=== PATIENT | female | born 2000 | race African-American/Black ===

== ENCOUNTER 2020-11-19 10:27 | Emergency (ER) | payer OTHER ==
[~2020-11-19] VITALS: Ht 157.5 cm; Wt 65.5 kg
[2020-11-19] MEDS ORDERED: MULTTAB20 PO (10:41)
[2020-11-19] MEDS ORDERED: ACETAMINOPHEN TAB 650MG DOSE (2X325MG) PO ONE (14:50)
[2020-11-19 15:18] LABS: BASO % 0.2 % (0.0-1.0); EOS % 0.3 % (0.0-3.0); HEMATOCRIT 35.4 % (36.0-47.0); HEMOGLOBIN 11.8 g/dl (12.0-15.5); LYMPH # 2.1 10^3/uL (1.5-5.0); LYMPH % 23.8 % (24.0-44.0); MEAN CORPUSCULAR HEMOGLOBIN 29.1 pg (27.0-33.0); MEAN CORPUSCULAR HGB CONC 33.3 g/dl (32.0-36.5); MEAN CORPUSCULAR VOLUME 87.4 fl (80.0-96.0); MONO # 0.6 10^3/uL (0.0-0.8); MONO % 6.2 % (2.0-8.0); NEUTROPHILS # 6.1 10^3/uL (1.5-8.5); NEUTROPHILS % 69.1 % (36.0-66.0); PLATELET COUNT, AUTOMATED 239 10^3/uL (150-450); RED BLOOD COUNT 4.05 10^6/uL (4.00-5.40); WHITE BLOOD COUNT 8.9 10^3/uL (4.0-10.0)
[2020-11-19 15:43] LABS: ERYTHROCYTE SEDIMENTATION RATE 18 mm/hr (0-20)
[2020-11-19 16:15] LABS: C REACTIVE PROTEIN QUANTITATIV < 0.30 MG/DL (0.00-0.30); CALCIUM LEVEL 9.9 MG/DL (8.5-10.1); HCG, SERUM QUANTITATIVE 78912 MIU/ML
[2020-11-19 16:20] VITALS: BP 110/68
== END 2020-11-19 16:24 | disposition home or self-care (01) ==
LOC: M ED 10:27 → EDBD 10:27 → M ED 16:24
DX: S76.019A Strain of muscle, fascia and tendon of unspecified hip, initial encounter (principal); M25.559 Pain in unspecified hip; Z87.81 Personal history of (healed) traumatic fracture; X50.0XXA Overexertion from strenuous movement or load, initial encounter; Y92.9 Unspecified place or not applicable; Y93.9 Activity, unspecified; Y99.9 Unspecified external cause status

== ENCOUNTER 2021-02-10 20:57 | Emergency (ER) | payer OTHER ==
[~2021-02-10] VITALS: Ht 157.5 cm; Wt 70.5 kg
[~2021-02-10 20:57] MED LIST: MULTTAB20 PO
[2021-02-10 20:59] VITALS: BP 149/85
== END 2021-02-10 21:28 | disposition admitted as inpatient to this hospital (09) ==
LOC: M ED 20:57
DX: Z53.21 Procedure and treatment not carried out due to patient leaving prior to being seen by health care provider (principal); O26.892 Other specified pregnancy related conditions, second trimester; Z3A.00 Weeks of gestation of pregnancy not specified

== ENCOUNTER 2021-02-10 21:11 | Outpatient (CLI) | payer OTHER ==
[~2021-02-10] VITALS: Ht 157.5 cm; Wt 70.8 kg
[2021-02-10 21:27] VITALS: BP 116/58
[2021-02-10] MEDS ORDERED: FAMOTIDINE 20 MG TAB PO STA (22:24)
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
== END 2021-02-10 23:05 | disposition home or self-care (01) ==
LOC: M LDO 21:11
PROVIDERS: ATTEND Obstetrics & Gynecology
DX: O99.612 Diseases of the digestive system complicating pregnancy, second trimester (principal); K21.9 Gastro-esophageal reflux disease without esophagitis; O26.892 Other specified pregnancy related conditions, second trimester; Z3A.22 22 weeks gestation of pregnancy; R10.10 Upper abdominal pain, unspecified; Z65.8 Other specified problems related to psychosocial circumstances
CPT/HCPCS: 59025; G0378; G0463

== ENCOUNTER 2021-02-25 11:07 | Emergency (ER) | payer OTHER ==
[~2021-02-25] VITALS: Ht 157.5 cm; Wt 72.7 kg
[2021-02-25 11:30] VITALS: BP 113/63
[2021-02-25 11:43] LABS: BASO % 0.2 % (0.0-1.0); EOS % 0.1 % (0.0-3.0); HEMATOCRIT 30.5 % (36.0-47.0); HEMOGLOBIN 10.3 g/dl (12.0-15.5); LYMPH # 1.7 10^3/uL (1.5-5.0); LYMPH % 16.7 % (24.0-44.0); MEAN CORPUSCULAR HEMOGLOBIN 30.2 pg (27.0-33.0); MEAN CORPUSCULAR HGB CONC 33.8 g/dl (32.0-36.5); MEAN CORPUSCULAR VOLUME 89.4 fl (80.0-96.0); MONO # 0.6 10^3/uL (0.0-0.8); MONO % 5.9 % (2.0-8.0); NEUTROPHILS # 7.9 10^3/uL (1.5-8.5); NEUTROPHILS % 75.6 % (36.0-66.0); PLATELET COUNT, AUTOMATED 222 10^3/uL (150-450); RED BLOOD COUNT 3.41 10^6/uL (4.00-5.40); WHITE BLOOD COUNT 10.4 10^3/uL (4.0-10.0)
[2021-02-25 12:05] LABS: ALBUMIN 2.8 GM/DL (3.2-5.2); ALT/SGPT 18 U/L (12-78); BILIRUBIN,DIRECT < 0.1 MG/DL (0.0-0.2); BILIRUBIN,TOTAL 0.2 MG/DL (0.2-1.0); BLOOD UREA NITROGEN 6 MG/DL (7-18); CALCIUM LEVEL 8.9 MG/DL (8.5-10.1); CARBON DIOXIDE LEVEL 22 MEQ/L (21-32); CHLORIDE LEVEL 109 MEQ/L (98-107); GLOMERULAR FILTRATION RATE > 60.0 (>60); GLUCOSE, FASTING 88 MG/DL (70-100); POTASSIUM SERUM 3.7 MEQ/L (3.5-5.1); SODIUM LEVEL 138 MEQ/L (136-145)
[2021-02-25] MEDS ORDERED: ISOVUE-370 76% 100ML VIAL As Ordered ONE (12:44)
[2021-02-25 13:00] LABS: CK-MB VALUE MASS < 1.0 NG/ML (<3.6); CPK CREATINE PHOSPHOKINASE 66 U/L (26-192); MB/CK RELATIVE INDEX 1.52 (< OR =4); TROPONIN I < 0.02 NG/ML (< 0.10)
--- NOTE | 2021-02-25 14:05 | REP ---
INDICATION: SOB. COMPARISON: None. TECHNIQUE: Scans were obtained during contrast administration using the pulmonary embolus technique. FINDINGS: The lungs are clear. There is no evidence of pulmonary embolus. The ascending and descending thoracic aorta are unremarkable. The great vessels show normal origins from the arch. There is no pleural fluid. There is no adenopathy. The adrenal glands are not enlarged. The heart is not enlarged. There is no pleural effusion. IMPRESSION: Negative CTA chest. <Electronically signed by Jarrett Jose > 02/25/21 [id number]
[2021-02-25 14:26] LABS: NT-PRO BNP 123 PG/ML (<125)
--- NOTE | 2021-02-25 20:58 | ECGEPIP ---
[facility] - ED Test Date: 2021-02-25 Pat Name: ARIADNA BAUTISTA Department: Room: - Gender: Female [employer]sembler [employer]: TAB : 2000 Requested By: Bita Kowalski Order Number: [id number] Reading MD: Curly Hilario Measurements Intervals [place] Rate: 102 P: TX: 164 QRS: 35 QRSD: 70 T: -15 QT: 358 QTc: 466 Interpretive Statements Sinus tachycardia Nonspecific T wave abnormality Comparison tracing not on file Electronically Signed on 02-25-2021 20:58:29 EDT by Curly Hilario
== END 2021-02-25 14:58 | disposition home or self-care (01) ==
LOC: EDBD 11:07 → M ED 11:07
DX: O99.512 Diseases of the respiratory system complicating pregnancy, second trimester (principal); O99.342 Other mental disorders complicating pregnancy, second trimester; O99.412 Diseases of the circulatory system complicating pregnancy, second trimester; O99.332 Smoking (tobacco) complicating pregnancy, second trimester; Z3A.25 25 weeks gestation of pregnancy
CPT/HCPCS: 71275; 80048; 80076; 82550; 82553; 83880; 84484; 85025; 87798; 93005; 93041; 94760; 99284; Q9967

== ENCOUNTER 2021-03-10 12:20 | Emergency (ER) | payer OTHER ==
[~2021-03-10] VITALS: Ht 157.5 cm; Wt 72.7 kg
[2021-03-10 12:21] VITALS: BP 109/56
[2021-03-10] MEDS ORDERED: IRON325T9 PO (12:33)
[2021-03-10] MEDS ORDERED: VITA500C24 PO (16:32)
[2021-03-10] MEDS ORDERED: NOXI1TAB PO (16:33)
== END 2021-03-10 14:00 | disposition admitted as inpatient to this hospital (09) ==
LOC: M ED 12:20
DX: O26.892 Other specified pregnancy related conditions, second trimester (principal); Z3A.26 26 weeks gestation of pregnancy

== ENCOUNTER 2021-03-10 14:58 | Outpatient (CLI) | payer OTHER ==
[~2021-03-10] VITALS: Ht 157.5 cm; Wt 72.7 kg
[~2021-03-10 14:58] MED LIST changes: +IRON325T9 PO
[2021-03-10 15:25] VITALS: BP 131/63
[2021-03-10] MEDS ORDERED: VITA500C24 PO (16:32)
[2021-03-10] MEDS ORDERED: NOXI1TAB PO (16:33)
[2021-03-10] MEDS ORDERED: HOME MED LIST COMPLETE! XX SCH (16:35)
--- NOTE | 2021-03-10 17:38 | IPNPDOC ---
Obstetrical Progress Note Date of Service Mar 10, 2021 Subjective 20yo at 26w2d with CHRISTIANE 06/14/21 presents to triage with complaint of overall 'not feeling well'. She was initially evaluated at sick call and was sent to triage due to . Her symptoms are very vague. Denies any N/V, diarrhea or constipation. States that her symptoms began at work when she felt like she needed to have a BM but 'held it in' to finish some work, and then when she went to go she couldn't. She states her last normal BM was this AM. She has no acute symptoms on arrival, but is requesting to reduce work hours. Per prior discussion with her on last triage visit at 22wks, pt admitted that she is spending a total of 6h[address] the [address] every day so she can stay at home in [place]. She is currently supposed to be residing in the [facility] but refuses to stay there. She is requesting a quarters slip for tomorrow so that she has more time to rest, or alternatively is requesting a note for reduction in work hours. She has no OB complaints at this time. Denies contractions, LOF, VB or discharge. +GFM. Objective Vital Signs Date Time Temp Pulse Resp B/P (MAP) Pulse Ox O2 Delivery O2 Flow Rate FiO2 03/10/21 15:25 97.6 95 16 131/63 (85) 100 Room Air Assessment Heart Rate (FHR): 140 Variability: Moderate Accelerations: Positive Decelerations: None Heart Rate Tracing: Category I Tocometer Contractions: Yes (uterine irritability noted - pt not feeling) Assessment and Plan Status: Reassuring Additional Comments 20yo at 26w2d with CHRISTIANE 14 Jun 2021 with vague complaints. After long discussion with patient, it appears she is very anxious and sleep deprived. Suggested multiple ways for her to improve sleep (stay overnight at [facility] instead of making the long, unnecessary trip to [place]), using accrued leave, or speaking with her command to obtain a leave of absence. Discussed with her that at this time I have no medical reason why she cannot work. Although I agree that she needs to increase her rest, I will not write her a note for reduced work hours simply so she has time to drive to and from work as I do not endorse her decision to travel the long distance home when she has a place to stay in town. Patient states she has social issues at home that she needs to attend to but does not elaborate. Recommended referral to so she may discuss these issues further and to help determine if a mental leave of absence is warranted. Pt agrees, will send referral today. Asked patient if there is anything further I can assist with today given her vague complaints and normal exam. States she would like something to help with BM. Paper Rx provided for miralax, and states she already has colace at home. No quarters slip provided, pt again encouraged NOT to drive and to remain at the barracks. All questions answered, follow up as scheduled . PARIS ANTOINE M.D. Mar 10, 2021 16:57
== END 2021-03-10 16:25 | disposition home or self-care (01) ==
LOC: M LDO 14:58
PROVIDERS: ATTEND Advanced Practice Midwife
DX: O26.892 Other specified pregnancy related conditions, second trimester (principal); Z3A.26 26 weeks gestation of pregnancy
CPT/HCPCS: 59025; G0378; G0463